=== PATIENT | male | born 1965 | race Two or more races ===

== ENCOUNTER 2022-09-20 06:19 | Inpatient (IN) | payer SELFPAY ==
[~2022-09-20] VITALS: Ht 170.2 cm; Wt 77.1 kg
[2022-09-20] MEDS ORDERED: MORPHINE SULFATE 4 MG/ML CPJ (NOT FOR IM USE) IV ONE ×2 (07:00→13:15)
[2022-09-20] MEDS ORDERED: ONDANSETRON HCL 4MG/2ML INJ IV ONE ×2 (07:00→13:15)
[2022-09-20 07:21] LABS: CHLORIDE 102 mEq/L (98-107)
[2022-09-20 07:36] LABS: BASOPHILS % 0.4 % (0.0-2.0); EOSINOPHILS % 0.7 % (0.0-5.0); HEMATOCRIT. 48.1 % (42.0-52.0); HEMOGLOBIN. 16.5 g/dL (14.0-18.0); MEAN CORPUSCULAR HEMOGLOBIN 29.3 pg (28.0-32.0); MEAN CORPUSCULAR VOLUME 85.6 fL (80.0-94.0); MEAN PLATELET VOLUME 8.3 fl (7.4-10.4); MONOCYTES % 4.7 % (2.0-8.0); NEUTROPHILS % 84.2 % (40.0-76.0); PLATELET 336 x1000/uL (130-400); RED BLOOD CELL COUNT 5.62 mill/uL (4.7-6.1); RED CELL DISTRIBUTION WIDTH 13.2 % (11.6-14.6)
[2022-09-20] MEDS ORDERED: IBUPROFEN 600MG TABLET PO ONE (11:30)
[2022-09-20] MEDS: HYDROCODONE/ACETAMINOPHEN 7.5/325MG TABLET PO PRN ×2 (11:45→21:10)
[2022-09-20] MEDS ORDERED: ACETAMINOPHEN 325MG TABLET PO PRN (17:30)
[2022-09-20] MEDS ORDERED: NALOXONE HCL 0.4MG/ML VIAL IV PRN (17:30)
[2022-09-20] MEDS ORDERED: CLONIDINE 0.1MG TABLET PO PRN (17:30)
[2022-09-20] MEDS ORDERED: DIPHENHYDRAMINE 50MG/ML VIAL IV PRN (17:30)
[2022-09-20] MEDS ORDERED: IPRATROPIUM/ALBUTEROL 0.5-3(2.5)MG/3ML NEB HHN PRN (17:30)
[2022-09-20] MEDS ORDERED: PIPERACILLIN/TAZ 3.375G PREMIX 50 ML IV NR (17:45)
[2022-09-20 18:00] VITALS: BP 121/75
[2022-09-20] MEDS: ONDANSETRON HCL 4MG/2ML INJ IV PRN (18:02)
[2022-09-20] MEDS: MORPHINE SULFATE 2 MG/ML CPJ (NOT FOR IM USE) IV PRN ×2 (18:03→23:55)
[2022-09-20 18:22] VITALS: BP 121/75
[2022-09-20 20:00] VITALS: BP 156/87
[2022-09-20] MEDS ORDERED: PIPERACILLIN/TAZOBACTAM 3.375 G in DEXTROSE 5% WATER 50 ML IV SCH (22:00)
[2022-09-20] MEDS: ZOLPIDEM TARTRATE 5MG TABLET PO PRN (22:13)
[2022-09-21] VITALS: BP 148/80
[2022-09-21] MEDS: ACYCLOVIR INJ 750 MG in DEXT 5% WATER 250 ML IV SCH ×3 (00:50→17:47)
[2022-09-21] MEDS: AMPICILLIN 2,000 MG in SODIUM CHLORIDE 0.9% 100 ML IV SCH ×4 (00:50→23:07)
[2022-09-21] MEDS ORDERED: VANCOMYCIN 1500MG in DEXTROSE 5% WATER 250ML IV NR (02:00)
[2022-09-21 04:00] VITALS: BP 140/86
[2022-09-21] MEDS: MORPHINE SULFATE 2 MG/ML CPJ (NOT FOR IM USE) IV PRN ×4 (04:10→21:07)
[2022-09-21] MEDS: CEFTRIAXONE 2 G in DEXTROSE 5% WATER 50 ML IV SCH ×2 (05:24→17:47)
[2022-09-21 05:37] LABS: *AMPHETAMINES SCREEN URINE NEGATIVE (NEGATIVE); *BARBITURATES SCREEN URINE NEGATIVE (NEGATIVE); *BENZODIAZEPINES SCREEN URINE NEGATIVE (NEGATIVE); *COCAINE SCREEN URINE NEGATIVE (NEGATIVE); CANNABINOID URINE SCREEN NEGATIVE (NEGATIVE); METHADONE URINE SCREEN NEGATIVE (NEGATIVE); OPIATES URINE SCREEN PRESUMTIVE POSITIVE (NEGATIVE); PHENCYCLIDINE URINE SCREEN NEGATIVE (NEGATIVE)
[2022-09-21] MEDS ORDERED: PIPERACILLIN/TAZOBACTAM 3.375 G in DEXTROSE 5% WATER 50 ML IV SCH (06:00)
[2022-09-21 06:22] LABS: BASOPHILS % 0.3 % (0.0-2.0); EOSINOPHILS % 1.1 % (0.0-5.0); HEMATOCRIT. 41.2 % (42.0-52.0); HEMOGLOBIN. 14.2 g/dL (14.0-18.0); LYMPHOCYTES % 12.1 % (20.0-50.0); MEAN CORPUSCULAR HEMOGLOBIN 29.6 pg (28.0-32.0); MEAN CORPUSCULAR VOLUME 85.8 fL (80.0-94.0); MEAN PLATELET VOLUME 8.3 fl (7.4-10.4); MONOCYTES % 7.9 % (2.0-8.0); NEUTROPHILS % 78.6 % (40.0-76.0); PLATELET 296 x1000/uL (130-400); RED CELL DISTRIBUTION WIDTH 13.4 % (11.6-14.6)
[2022-09-21 06:38] LABS: CHLORIDE 97 mEq/L (98-107)
[2022-09-21 08:00] VITALS: BP 113/64
[2022-09-21] MEDS: ONDANSETRON HCL 4MG/2ML INJ IV PRN ×2 (08:21→17:47)
[2022-09-21] MEDS ORDERED: CEFTRIAXONE 2 G PREMIX 50 ML IV SCH (09:00)
[2022-09-21] MEDS: VANCOMYCIN 750MG PREMIX 150 ML IV SCH ×2 (10:28→20:39)
[2022-09-21] MEDS: HYDROCODONE/ACETAMINOPHEN 7.5/325MG TABLET PO PRN ×2 (10:32→23:11)
[2022-09-21 12:00] VITALS: BP 118/71
[2022-09-21] MEDS ORDERED: IOHEXOL-350 100 ML BOTTLE ONE (12:47)
[2022-09-21 16:00] VITALS: BP 130/65
[2022-09-21] MEDS: SODIUM CHLORIDE 0.9% 1,000 ML IV SCH (17:48)
[2022-09-21 20:00] VITALS: BP 124/71
[2022-09-21] MEDS: ZOLPIDEM TARTRATE 5MG TABLET PO PRN (20:39)
[2022-09-22] VITALS: BP 129/74
[2022-09-22] MEDS: ACYCLOVIR INJ 750 MG in DEXT 5% WATER 250 ML IV SCH ×3 (00:02→15:41)
[2022-09-22] MEDS: MORPHINE SULFATE 2 MG/ML CPJ (NOT FOR IM USE) IV PRN ×4 (01:22→21:17)
[2022-09-22 04:00] VITALS: BP 131/77
[2022-09-22] MEDS: VANCOMYCIN 750MG PREMIX 150 ML IV SCH ×3 (04:07→17:01)
[2022-09-22] MEDS: SODIUM CHLORIDE 0.9% 1,000 ML IV SCH ×2 (04:08→15:40)
[2022-09-22] MEDS: ONDANSETRON HCL 4MG/2ML INJ IV PRN ×4 (04:54→22:26)
[2022-09-22 05:26] LABS: BASOPHILS % 0.2 % (0.0-2.0); EOSINOPHILS % 1.5 % (0.0-5.0); HEMATOCRIT. 42.2 % (42.0-52.0); HEMOGLOBIN. 14.6 g/dL (14.0-18.0); LYMPHOCYTES % 14.4 % (20.0-50.0); MEAN CORPUSCULAR VOLUME 84.1 fL (80.0-94.0); MEAN PLATELET VOLUME 8.4 fl (7.4-10.4); MONOCYTES % 7.3 % (2.0-8.0); NEUTROPHILS % 76.6 % (40.0-76.0); PLATELET 301 x1000/uL (130-400); RED BLOOD CELL COUNT 5.03 mill/uL (4.7-6.1); RED CELL DISTRIBUTION WIDTH 13.2 % (11.6-14.6)
[2022-09-22] MEDS: HYDROCODONE/ACETAMINOPHEN 7.5/325MG TABLET PO PRN (05:39)
[2022-09-22 05:50] LABS: CHLORIDE 95 mEq/L (98-107)
[2022-09-22] MEDS: AMPICILLIN 2,000 MG in SODIUM CHLORIDE 0.9% 100 ML IV SCH ×4 (06:36→17:01)
[2022-09-22] MEDS: CEFTRIAXONE 2 G in DEXTROSE 5% WATER 50 ML IV SCH ×2 (06:36→17:01)
[2022-09-22] MEDS ORDERED: POTASSIUM CHLORIDE 20MEQ TABLET SR PO NR (07:15)
[2022-09-22 08:00] VITALS: BP 148/90
[2022-09-22 09:07] LABS: GLUCOSE CSF 30 mg/dL (41-75)
[2022-09-22] MEDS: HYDROCODONE/ACETAMINOPHEN 10/325MG TABLET PO PRN ×3 (09:37→22:12)
[2022-09-22] MEDS: KETOROLAC 15MG/ML VIAL IV PRN ×3 (09:37→22:12)
[2022-09-22 10:08] LABS: HIV SCREEN 4G Non Reactive (Non Reactive)
[2022-09-22] MEDS ORDERED: MAGNESIUM 2 G PREMIX 50 ML IV NR (11:00)
[2022-09-22] MEDS ORDERED: ONDANSETRON HCL 4MG/2ML INJ IV PRN (11:30)
[2022-09-22 12:00] VITALS: BP 112/65
[2022-09-22 16:00] VITALS: BP 131/70
[2022-09-22 20:00] VITALS: BP 138/77
[2022-09-23] VITALS (7 sets, daily range): BP systolic 115–157; BP diastolic 50–84
[2022-09-23] MEDS: ZOLPIDEM TARTRATE 5MG TABLET PO PRN ×2 (01:02→23:06)
[2022-09-23] MEDS: AMPICILLIN 2,000 MG in SODIUM CHLORIDE 0.9% 100 ML IV SCH ×4 (01:02→17:54)
[2022-09-23] MEDS: KETOROLAC 15MG/ML VIAL IV PRN ×4 (01:10→23:25)
[2022-09-23] MEDS: ACYCLOVIR INJ 750 MG in DEXT 5% WATER 250 ML IV SCH ×3 (02:04→16:09)
[2022-09-23] MEDS: VANCOMYCIN 750MG PREMIX 150 ML IV SCH ×2 (04:12→10:47)
[2022-09-23] MEDS: SODIUM CHLORIDE 0.9% 1,000 ML IV SCH ×2 (04:12→16:09)
[2022-09-23] MEDS: MORPHINE SULFATE 2 MG/ML CPJ (NOT FOR IM USE) IV PRN ×2 (05:03→20:13)
[2022-09-23] MEDS: CEFTRIAXONE 2 G in DEXTROSE 5% WATER 50 ML IV SCH ×2 (05:24→17:27)
[2022-09-23] MEDS: ONDANSETRON HCL 4MG/2ML INJ IV PRN ×2 (08:36→19:10)
[2022-09-23] MEDS: HYDROCODONE/ACETAMINOPHEN 10/325MG TABLET PO PRN (08:37)
[2022-09-23] MEDS ORDERED: OXYCODONE HCL/ACETAMINOPHEN 5/325MG TABLET PO PRN (09:15)
[2022-09-23] MEDS ORDERED: NALOXONE HCL 0.4 MG/ML 1ML VIAL IV PRN (09:15)
[2022-09-23 09:23] LABS: CHLORIDE 97 mEq/L (98-107)
[2022-09-23 09:35] LABS: VANCOMYCIN TROUGH 22.9 ug/mL (5.0-10.0)
[2022-09-23] MEDS ORDERED: POTASSIUM CHLORIDE 20MEQ TABLET SR PO NR (15:15)
[2022-09-23] MEDS: VANCOMYCIN 1,000 MG in DEXT 5% WATER 250 ML IV SCH (23:06)
[2022-09-24] MEDS: AMPICILLIN 2,000 MG in SODIUM CHLORIDE 0.9% 100 ML IV SCH ×4 (00:41→18:34)
[2022-09-24] MEDS: ACYCLOVIR INJ 750 MG in DEXT 5% WATER 250 ML IV SCH ×3 (01:40→16:46)
[2022-09-24 03:30] VITALS: BP 144/92
[2022-09-24] MEDS: MORPHINE SULFATE 2 MG/ML CPJ (NOT FOR IM USE) IV PRN (03:34)
[2022-09-24] MEDS: KETOROLAC 15MG/ML VIAL IV PRN ×3 (06:00→20:35)
[2022-09-24] MEDS: CEFTRIAXONE 2 G in DEXTROSE 5% WATER 50 ML IV SCH ×2 (06:00→17:48)
[2022-09-24 08:00] VITALS: BP 118/52
[2022-09-24] MEDS: SODIUM CHLORIDE 0.9% 1,000 ML IV SCH ×2 (08:37→17:48)
[2022-09-24] MEDS: OXYCODONE HCL/ACETAMINOPHEN 5/325MG TABLET PO PRN ×3 (08:37→22:07)
[2022-09-24 09:40] LABS: CHLORIDE 97 mEq/L (98-107)
[2022-09-24] MEDS: VANCOMYCIN 1,000 MG in DEXT 5% WATER 250 ML IV SCH ×2 (11:06→21:59)
[2022-09-24] MEDS: ONDANSETRON HCL 4MG/2ML INJ IV PRN (11:27)
[2022-09-24 12:01] VITALS: BP 121/66
[2022-09-24 15:57] VITALS: BP 138/89
[2022-09-24] MEDS ORDERED: POTASSIUM CHLORIDE 20MEQ TABLET SR PO NR (17:45)
[2022-09-24 20:00] VITALS: BP 124/65
[2022-09-24] MEDS: MELATONIN 3MG TABLET PO SCH (20:35)
[2022-09-25] VITALS: BP 137/81
[2022-09-25] MEDS: MORPHINE SULFATE 2 MG/ML CPJ (NOT FOR IM USE) IV PRN ×2 (00:40→08:27)
[2022-09-25] MEDS: AMPICILLIN 2,000 MG in SODIUM CHLORIDE 0.9% 100 ML IV SCH ×3 (00:40→12:50)
[2022-09-25] MEDS: ACYCLOVIR INJ 750 MG in DEXT 5% WATER 250 ML IV SCH ×3 (01:26→17:08)
[2022-09-25] MEDS: KETOROLAC 15MG/ML VIAL IV PRN (03:01)
[2022-09-25 04:00] VITALS: BP 120/65
[2022-09-25] MEDS: OXYCODONE HCL/ACETAMINOPHEN 5/325MG TABLET PO PRN ×4 (04:46→23:11)
[2022-09-25] MEDS: CEFTRIAXONE 2 G in DEXTROSE 5% WATER 50 ML IV SCH ×2 (04:46→18:11)
[2022-09-25] MEDS: SODIUM CHLORIDE 0.9% 1,000 ML IV SCH ×2 (05:48→19:00)
[2022-09-25 08:05] VITALS: BP 138/62
[2022-09-25 08:27] LABS: BASOPHILS % 0.8 % (0.0-2.0); EOSINOPHILS % 9.1 % (0.0-5.0); HEMATOCRIT. 46.4 % (42.0-52.0); LYMPHOCYTES % 20.2 % (20.0-50.0); MEAN CORPUSCULAR HEMOGLOBIN 29.1 pg (28.0-32.0); MEAN CORPUSCULAR VOLUME 84.7 fL (80.0-94.0); MEAN PLATELET VOLUME 7.9 fl (7.4-10.4); MONOCYTES % 10.7 % (2.0-8.0); NEUTROPHILS % 59.2 % (40.0-76.0); PLATELET 355 x1000/uL (130-400); RED BLOOD CELL COUNT 5.48 mill/uL (4.7-6.1); RED CELL DISTRIBUTION WIDTH 13.1 % (11.6-14.6)
[2022-09-25 10:17] LABS: CHLORIDE 101 mEq/L (98-107)
[2022-09-25] MEDS: VANCOMYCIN 1,000 MG in DEXT 5% WATER 250 ML IV SCH (11:00)
[2022-09-25 12:00] VITALS: BP 131/73
[2022-09-25 16:00] VITALS: BP 164/60
[2022-09-25] MEDS: ONDANSETRON HCL 4MG/2ML INJ IV PRN (17:32)
[2022-09-25] MEDS ORDERED: VANCOMYCIN 750MG PREMIX 150 ML IV SCH (19:00)
[2022-09-25 20:00] VITALS: BP 142/80
[2022-09-25] MEDS: MELATONIN 3MG TABLET PO SCH (21:00)
[2022-09-25] MEDS: DIPHENHYDRAMINE 50MG CAPSULE PO SCH (23:10)
[2022-09-26] VITALS (7 sets, daily range): BP systolic 129–146; BP diastolic 47–86
[2022-09-26] MEDS: OXYCODONE HCL/ACETAMINOPHEN 5/325MG TABLET PO PRN ×4 (05:11→23:16)
[2022-09-26 07:15] LABS: BASOPHILS % 0.6 % (0.0-2.0); EOSINOPHILS % 8.5 % (0.0-5.0); HEMATOCRIT. 43.5 % (42.0-52.0); HEMOGLOBIN. 15.1 g/dL (14.0-18.0); LYMPHOCYTES % 13.1 % (20.0-50.0); MEAN CORPUSCULAR HEMOGLOBIN 29.3 pg (28.0-32.0); MEAN CORPUSCULAR VOLUME 84.2 fL (80.0-94.0); MEAN PLATELET VOLUME 7.8 fl (7.4-10.4); NEUTROPHILS % 68.8 % (40.0-76.0); PLATELET 373 x1000/uL (130-400); RED BLOOD CELL COUNT 5.16 mill/uL (4.7-6.1); RED CELL DISTRIBUTION WIDTH 13.1 % (11.6-14.6)
[2022-09-26 09:52] LABS: CHLORIDE 98 mEq/L (98-107)
[2022-09-26] MEDS: SODIUM CHLORIDE 0.9% 1,000 ML IV SCH ×2 (11:15→21:35)
[2022-09-26] MEDS: ONDANSETRON HCL 4MG/2ML INJ IV PRN ×2 (11:18→17:02)
[2022-09-26 13:07] LABS: WEST NILE VIRUS CSF IGG Negative (Negative); WEST NILE VIRUS CSF IGM Negative (Negative)
[2022-09-26] MEDS: MELATONIN 3MG TABLET PO SCH (21:28)
[2022-09-26] MEDS: DIPHENHYDRAMINE 50MG CAPSULE PO SCH (21:28)
[2022-09-27 04:00] VITALS: BP 129/78
[2022-09-27] MEDS: ONDANSETRON HCL 4MG/2ML INJ IV PRN (04:51)
[2022-09-27] MEDS: OXYCODONE HCL/ACETAMINOPHEN 5/325MG TABLET PO PRN ×3 (05:07→18:09)
[2022-09-27 08:00] VITALS: BP 134/69
[2022-09-27] MEDS: SODIUM CHLORIDE 0.9% 1,000 ML IV SCH (08:26)
[2022-09-27 12:00] VITALS: BP 145/70
[2022-09-27 16:00] VITALS: BP 131/82
[2022-09-27 20:00] VITALS: BP 138/74
[2022-09-27] MEDS: MELATONIN 3MG TABLET PO SCH (20:30)
[2022-09-27] MEDS: DIPHENHYDRAMINE 50MG CAPSULE PO SCH (20:30)
[2022-09-28] VITALS: BP 142/78
[2022-09-28] MEDS: OXYCODONE HCL/ACETAMINOPHEN 5/325MG TABLET PO PRN ×4 (00:41→23:15)
[2022-09-28 04:00] VITALS: BP 128/79
[2022-09-28 07:49] VITALS: BP 138/68
[2022-09-28 08:26] LABS: BASOPHILS % 0.7 % (0.0-2.0); EOSINOPHILS % 8.5 % (0.0-5.0); HEMATOCRIT. 44.7 % (42.0-52.0); HEMOGLOBIN. 15.3 g/dL (14.0-18.0); MEAN CORPUSCULAR HEMOGLOBIN 29.4 pg (28.0-32.0); MEAN CORPUSCULAR VOLUME 85.8 fL (80.0-94.0); MEAN PLATELET VOLUME 7.7 fl (7.4-10.4); MONOCYTES % 10.7 % (2.0-8.0); NEUTROPHILS % 60.1 % (40.0-76.0); PLATELET 355 x1000/uL (130-400); RED BLOOD CELL COUNT 5.21 mill/uL (4.7-6.1); RED CELL DISTRIBUTION WIDTH 13.4 % (11.6-14.6)
[2022-09-28 09:55] LABS: CHLORIDE 100 mEq/L (98-107)
[2022-09-28] MEDS: SODIUM CHLORIDE 0.9% 1,000 ML IV SCH ×2 (09:57→22:00)
[2022-09-28 12:00] VITALS: BP 130/89
[2022-09-28 16:00] VITALS: BP 127/82
[2022-09-28 20:00] VITALS: BP 133/101
[2022-09-28] MEDS: DIPHENHYDRAMINE 50MG CAPSULE PO SCH (20:44)
[2022-09-28] MEDS: MELATONIN 3MG TABLET PO SCH (23:08)
[2022-09-29] VITALS: BP 137/88
[2022-09-29 04:00] VITALS: BP 130/83
[2022-09-29] MEDS: OXYCODONE HCL/ACETAMINOPHEN 5/325MG TABLET PO PRN ×2 (06:28→11:56)
[2022-09-29 08:00] VITALS: BP 111/70
[2022-09-29] MEDS: SODIUM CHLORIDE 0.9% 1,000 ML IV SCH (10:30)
[2022-09-29] MEDS ORDERED: MELA3TAB40 MT (11:45)
[2022-09-29] MEDS ORDERED: ONDA4TAB11 PO (11:45)
[2022-09-29] MEDS ORDERED: OXYC-100 MT (11:45)
[2022-09-29 12:00] VITALS: BP 133/87
[2022-09-29 12:35] VITALS: BP 133/82
== END 2022-09-29 13:35 | disposition home or self-care (01) | DRG 50 ==
LOC: ER 06:19 → 7EST 15:14 → ENRESERV 16:38
PROVIDERS: ADMIT Internal Medicine; ATTEND Internal Medicine
PROC: 009U3ZZ Drainage of Spinal Canal, Percutaneous Approach (ICD-10-PCS; principal; 2022-09-20)
DX: G03.0 Nonpyogenic meningitis (principal); E87.1 Hypo-osmolality and hyponatremia; G00.9 Bacterial meningitis, unspecified; R40.0 Somnolence; Z59.02 Unsheltered homelessness; Z87.820 Personal history of traumatic brain injury
CPT/HCPCS: 36415; 70496; 80048; 80053; 80202; 80305; 82438; 82945; 84157; 85025; 86695; 86696; 86788; 86789; 87070; 87389; 93970; 99285; J0133; J0290; J0696; J1885; J2270; J2405; J2543; J3370; J3475; J7030; J7050; J7060; Q0163; Q9967